=== PATIENT | female | born 1970 | race Caucasian/White ===

== ENCOUNTER 2017-06-29 12:59 | Emergency (ER) | payer OTHER ==
[~2017-06-29] VITALS: Ht 167.6 cm; Wt 61.2 kg
[2017-06-29 13:01] VITALS: BP 11/73
[2017-06-29] MEDS ORDERED: LIDOCAINE 1%-EPI 1:100,000 20 ML VIAL TP ONE (14:00)
[2017-06-29] MEDS ORDERED: IBUPROFEN 600 MG TABLET PO ONE ×2 (14:00→14:02)
== END 2017-06-29 14:46 | disposition home or self-care (01) ==
LOC: ER 13:01
DX: S81.812A Laceration without foreign body, left lower leg, initial encounter (principal); S60.512A Abrasion of left hand, initial encounter; S70.312A Abrasion, left thigh, initial encounter; Z88.0 Allergy status to penicillin; W45.8XXA Other foreign body or object entering through skin, initial encounter; Y93.39 Activity, other involving climbing, rappelling and jumping off; Y92.89 Other specified places as the place of occurrence of the external cause; Y99.8 Other external cause status
CPT/HCPCS: 12002; 99283; A6402; Z7610

== ENCOUNTER 2018-07-01 14:32 | Emergency (ER) | payer OTHER ==
[~2018-07-01] VITALS: Ht 167.6 cm; Wt 68.0 kg
[2018-07-01 14:32] VITALS: BP 118/61
[2018-07-01] MEDS ORDERED: HYDROCODONE/APAP 10/325MG 1 EA TABLET PO ONE (16:00)
[2018-07-01] MEDS ORDERED: KETOROLAC TROMETHAMINE INJ 60 MG/2 ML VIAL IM ONE (16:00)
[2018-07-01] MEDS ORDERED: KETOROLAC TROMETHAMINE INJ 30 MG/ML VIAL ONE (16:06)
[2018-07-01] MEDS ORDERED: HYDROCODONE/APAP 10/325MG 1 EA TABLET ONE (16:06)
[2018-07-01] MEDS ORDERED: MORPHINE SULFATE INJ 4 MG/ML DISP.SYRIN ONE (17:11)
[2018-07-01] MEDS ORDERED: MORPHINE SULFATE INJ 2 MG/ML DISP.SYRIN IM ONE (17:30)
== END 2018-07-01 17:22 | disposition home or self-care (01) ==
LOC: ER 14:33
DX: G89.29 Other chronic pain (principal); M54.42 Lumbago with sciatica, left side; Z88.0 Allergy status to penicillin
CPT/HCPCS: 96372 ×2; 99283; A4606; J1885; J2270

== ENCOUNTER 2018-07-20 22:14 | Emergency (ER) | payer OTHER ==
[~2018-07-20] VITALS: Ht 167.6 cm; Wt 68.0 kg
--- NOTE | 2018-07-21 00:17 | NUR ---
PT PRESENTED TO THE WITH A C/O BACK PAIN AND BLE PAIN S/P AN EPIDURAL YESTERDAY AM. PT STATED THAT SHE HAS HAD ONE BEFORE AND IT DIDN'T WORK. PT IS ON THE MONITOR AND CONTINUOUS PULSE OX.
[2018-07-21] MEDS ORDERED: MORPHINE SULFATE INJ 4 MG/ML DISP.SYRIN ONE (01:21)
[2018-07-21] MEDS ORDERED: METOCLOPRAMIDE HCL 10 MG/2 ML VIAL ONE (01:21)
[2018-07-21] MEDS ORDERED: ACETAMINOPHEN ES 500 MG TABLET ONE (01:22)
[2018-07-21] MEDS ORDERED: MORPHINE SULFATE INJ 2 MG/ML DISP.SYRIN IV ONE (01:30)
[2018-07-21] MEDS ORDERED: ACETAMINOPHEN 325 MG TABLET PO ONE (01:30)
[2018-07-21] MEDS ORDERED: METOCLOPRAMIDE HCL 10 MG/2 ML VIAL IV ONE (01:30)
[2018-07-21 01:32] LABS: BASOPHILS % (AUTO) 0.3 % (0.0-2.0); HEMATOCRIT 41 % (33-45); HEMOGLOBIN 13.7 g/dL (11.5-14.8); LYMPHOCYTES # (AUTO) 1.1 /CMM (0.8-4.8); LYMPHOCYTES % (AUTO) 7.1 % (20.0-44.0); MEAN CORPUSCULAR HGB CONC 33 g/dl (31.0-36.0); MEAN CORPUSCULAR VOLUME 92 fL (82-100); MONOCYTES # (AUTO) 0.3 /CMM (0.1-1.30); MONOCYTES % (AUTO) 2.3 % (2.0-12.0); NEUTROPHILS # (AUTO) 13.4 /CMM (1.8-8.9); NEUTROPHILS % (AUTO) 90.3 % (43.0-81.0); PLATELET COUNT (AUTO) 281 /CMM (150-450); RED BLOOD CELL COUNT(AUTO) 4.51 MIL/uL (4.0-5.2); WHITE BLOOD COUNT (AUTO) 14.9 K/uL (4.3-11.0)
[2018-07-21 01:41] LABS: CALCIUM, SERUM 9.2 mg/dL (8.5-10.1); CREATININE 0.7 mg/dL (0.6-1.3); POTASSIUM 3.9 mmol/L (3.5-5.1)
[2018-07-21 01:47] LABS: ALBUMIN 3.9 g/dL (3.4-5.0); BILIRUBIN,TOTAL 0.3 mg/dL (0.2-1.0); TOTAL PROTEIN, SERUM 7.4 g/dL (6.4-8.2)
--- NOTE | 2018-07-21 01:55 | NUR ---
PT REC'D MEDICATION ORDERED.
[2018-07-21] MEDS ORDERED: diphenhydrAMINE HCL 50 MG/ML VIAL IV ONE (03:00)
[2018-07-21] MEDS ORDERED: PROCHLORPERAZINE EDISYLATE 10 MG/2 ML VIAL IVP ONE (03:00)
[2018-07-21] MEDS ORDERED: diphenhydrAMINE HCL 50 MG/ML VIAL ONE (03:10)
[2018-07-21] MEDS ORDERED: PROCHLORPERAZINE EDISYLATE 10 MG/2 ML VIAL ONE (03:10)
--- NOTE | 2018-07-21 03:40 | NUR ---
PT APPEARS TO BE RESTING IN BED. PT IS ON THE MONITOR AND CONTINUOUS PULSE OX.
[2018-07-21] MEDS ORDERED: ONDANSETRON HCL/PF 4 MG/2 ML VIAL ONE (04:55)
[2018-07-21] MEDS ORDERED: ONDANSETRON HCL/PF - ER 4 MG/2 ML VIAL IV ONE (05:00)
--- NOTE | 2018-07-21 05:05 | NUR ---
Patient discharged to home in stable condition. Written and verbal after care instructions given. Patient verbalizes understanding of instruction. IV removed. Catheter intact and site benign. Pressure and 4x4 applied to site. No bleeding noted. pT WAS INSTRUCTED TO F/U WITH NEURO. PT HAS A NEURO SURGEON ALREADY AND PLANS TO MAKE AN APPT WITH HIM. PT IS AWAITING HER BOYFRIEND'S ARRIVAL. BOYFRIEND TO DRIVE PT HOME. VSS
--- NOTE | 2018-07-21 05:36 | NUR ---
PT'S BOYFRIEND ARRIVED AND PT AMBULATED OUT WITH A STEADY GAIT.
[2018-07-21 05:38] VITALS: BP 102/56
== END 2018-07-21 05:39 | disposition home or self-care (01) ==
LOC: ER 22:20
DX: G97.1 Other reaction to spinal and lumbar puncture (principal); Z88.0 Allergy status to penicillin
CPT/HCPCS: 36415; 70450; 80053; 85025; 85730; 86850; 93005; 96374; 96375; 99284; J0780; J1200; J2270; J2405 ×2; J2765

== ENCOUNTER 2019-02-21 08:27 | Emergency (ER) | payer OTHER ==
[~2019-02-21] VITALS: Ht 162.6 cm; Wt 66.7 kg
--- NOTE | 2019-02-21 08:50 | NUR ---
PT CAME TO ER W/ C/O OF LEG PAIN. SHE HAD PREVIOUSLY SURGERIES 2x MONTHS AGO. AAOX4. NO SOB. BREATHING EVEN AND UNLABORED. VSS. WILL CONTINUE TO MONITOR.
--- NOTE | 2019-02-21 09:00 | NUR ---
Pt is requsting pain medication and offered toradol. She is refusing and demanding morphine or dilaudid
--- NOTE | 2019-02-21 09:30 | NUR ---
Patient discharged to home in stable condition. Written and verbal after care instructions given. Patient verbalizes understanding of instruction.
[2019-02-21 10:28] VITALS: BP 114/75
== END 2019-02-21 09:29 | disposition home or self-care (01) ==
LOC: ER 08:27
DX: G62.9 Polyneuropathy, unspecified (principal); Z88.0 Allergy status to penicillin

== ENCOUNTER 2020-07-18 15:01 | Emergency (ER) | payer OTHER ==
[~2020-07-18] VITALS: Ht 170.2 cm; Wt 61.2 kg
--- NOTE | 2020-07-18 15:12 | NUR ---
DESTINEE FROM A VET OFFICE. TO ER BED 16. AAOX4. NOT IN RESP DISTRESS. TRANSFERRED FROM [facility] TO BED W/O ASSIST. BROUGHT IN FOR A SYNCOPAL EPISODE X 1. PT IS NOTED HYPOTENSIVE @ 88/53. IV LINE ALREADY PRESENT UON PRESENTATION ON THE L HAND 20G. AWAITING MD FOR EVAL
--- NOTE | 2020-07-18 16:20 | NUR ---
PT REFUSED TO HAVE ANY TESTING DONE. 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 SHE VERBALIZED THAT SHE IS HAVING WEEKLY EKGS DONE. PT IS OK THOUGHT O RECEIVED IV FLUID HYDRATION. MD IS AWARE.
[2020-07-18] MEDS ORDERED: IV NS 0.9% 1,000 ML BAG IV ONE (16:30)
--- NOTE | 2020-07-18 17:28 | NUR ---
md at bedside talking to pt
--- NOTE | 2020-07-18 17:36 | NUR ---
Patient does not wish to proceed with medical care recommended by Bradley Garibay. Patient given information related to possible complications, up to and including , which could occur as a result of leaving the hospital at this time. Patient verbalizes understanding of risks involved due to leaving against medical advice. Patient has signed AMA form.
[2020-07-18 17:38] VITALS: BP 106/76
== END 2020-07-18 17:38 | disposition left against medical advice (07) ==
LOC: ER 15:01
DX: R55 Syncope and collapse (principal); I95.9 Hypotension, unspecified; Z88.0 Allergy status to penicillin
CPT/HCPCS: 71045; 96360; 99283; J7030